=== PATIENT | male | born 1960 | race Caucasian/White ===

== ENCOUNTER 2025-09-19 15:18 | Outpatient (REF) | payer MEDICARE, SELFPAY ==
[2025-09-19 18:27] LABS: MANUAL DIFF FLAG NO
[2025-09-19 19:00] LABS: Hematocrit 49.9 % (42.0-52.0); Hemoglobin 16.8 g/dl (14.0-18.0); Imm Gran Abs Auto 0.06 X10*3/uL (0.00-0.03); Imm Gran Pct Auto 0.7 % (0.0-0.4); Lymphocytes Absolute Auto 2.1 X10*3/uL (1.2-4.9); Mean Corpuscular HGB Conc 33.7 g/dl (31.0-36.0); Mean Corpuscular Hemoglobin 30.5 pg (27.0-33.0); Mean Corpuscular Volume 90.6 fL (80.0-98.0); NRBC Abs Auto 0.000 X10*3/uL (0.0-0.012); NRBC Pct Auto 0.0 /100WBC (0.0-0.2); Platelet Count 192 X10*3/uL (160-400); Red Blood Count 5.51 X10*6/uL (4.60-5.80); White Blood Count 8.6 X10*3/uL (4.8-10.8)
[2025-09-19 19:36] LABS: Appearance Urine Clear; Glucose Urine UA Negative (Negative); PH 5.0 (5.0-9.0); Specific Gravity - Urine 1.020 (1.005-1.025)
[2025-09-19 19:55] LABS: Alanine Aminotransferase 73 U/L (0-40); Albumin Level 4.8 g/dL (3.5-5.0); Alkaline Phosphatase 55 U/L (39-117); Anion Gap 15 (12-20); Aspartate Amino Transferase 80 U/L (5-37); Blood Urea Nitrogen 13 mg/dL (9-16); Calcium 10.0 mg/dL (8.4-10.2); Carbon Dioxide 20 mmol/L (22-29); Chloride 106 mmol/L (96-108); Cholesterol 181 mg/dL (<200); Estimated Glomerular Filt Rate > 60; HDL Cholesterol 38 mg/dL (>40); Magnesium 1.8 mg/dL (1.6-2.6); Potassium 4.1 mmol/L (3.3-5.1); Sodium 137 mmol/L (135-145); Total Protein 7.2 g/dL (6.5-8.0); Triglycerides 424 mg/dL (<150)
[2025-09-19 20:22] LABS: Folate 6.0 ng/mL (> or = 4.0); Vitamin B12 799 pg/mL (200-900)
[2025-09-20 08:48] LABS: Syphilis Screen Nonreactive (Nonreactive)
[2025-09-20 09:11] LABS: HBS Num1 0.00 mIU/mL (0-7.99); HBsAGNum1 0.40 S/CO (0.00-0.99); HIV Num 1 0.06 S/CO (0.00-0.99); Hepatitis B Surface Antigen Negative (Negative); ~HepC Num1 0.12 S/CO (0.00-0.79); ~Hepatitis B Surface Antibody NONREACTIVE (Nonreactive); ~Hepatitis C Antibody Nonreactive (Nonreactive)
[2025-09-23 17:18] LABS: VITAMIN D (1,25 OH) D3 13 pg/mL; Vit D (1,25-Dihydroxy) Total 13 pg/mL (18-72); Vitamin D (1,25 OH) D2 <8 pg/mL
== END 2025-09-19 15:19 | disposition home or self-care (01) ==
LOC: HO.HKASLDS 15:18
PROVIDERS: PCP Student in an Organized Health Care Education/Training Program; Visit Provider Student in an Organized Health Care Education/Training Program
DX: I11.0 Hypertensive heart disease with heart failure (principal); L50.9 Urticaria, unspecified; J45.909 Unspecified asthma, uncomplicated; I42.9 Cardiomyopathy, unspecified; I50.9 Heart failure, unspecified; M54.50 Low back pain, unspecified; E11.9 Type 2 diabetes mellitus without complications; E66.9 Obesity, unspecified; E29.1 Testicular hypofunction; E78.5 Hyperlipidemia, unspecified; F32.A Depression, unspecified; N40.0 Benign prostatic hyperplasia without lower urinary tract symptoms; G89.29 Other chronic pain; R79.89 Other specified abnormal findings of blood chemistry; J45.20 Mild intermittent asthma, uncomplicated; F41.9 Anxiety disorder, unspecified; E55.9 Vitamin D deficiency, unspecified; Z86.0100 Personal history of colon polyps, unspecified; Z91.09 Other allergy status, other than to drugs and biological substances; Z87.891 Personal history of nicotine dependence; Z28.89 Immunization not carried out for other reason; Z98.890 Other specified postprocedural states
CPT/HCPCS: 36415; 80053; 80061; 81003; 82607; 82652; 82746; 83036; 83735; 84443; 85025; 86706; 86780; 86803; 87340; 87389; 90471; 96127

== ENCOUNTER 2025-09-19 15:18 | Outpatient (AMB) | payer MEDICARE, SELFPAY ==
--- NOTE | 2025-09-19 15:20 | A.OFFPC_ITS ---
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; Diabetes Accompanied by: Self / Same As Patient Allergies No Known Allergies Allergy (Verified 09/19/25 15:26) Tobacco use date assessed: 09/19/25 Fall risk assessment: 1 Fall in past year Last assessed Fall Risk: 09/19/25 Dental Screening Dental Screen Date: 09/19/25 Did you have a dental visit in the last 12 months?: Yes Was dental information given to patient?: Patient has dentist HPI HPI Comments History of Present Illness Details History of Present Illness The patient is a 65-year-old male presenting to establish care and for management of multiple chronic conditions, with chief complaints of new-onset urticaria and asthma exacerbations. Urticaria and Asthma: The patient has a history of asthma and allergic physiology and reports developing urticaria and asthma symptoms around the beginning of August, after moving to the [facility] in May. He notes some hives on his back currently, which can escalate within 10 minutes to full-blown hives and asthma, requiring visits to urgent care, which has happened twice. He has previously used Benadryl and hydroxyzine for these symptoms and has triamcinolone 0.1% cream, which has been helpful. He suspects environmental triggers such as mold from a wet basement in his older home and mold spores from leaves. While living in [place], he received allergy shots which were helpful. Cardiomyopathy and Congestive Heart Failure: The patient has a history of idiopathic cardiomyopathy, which led to congestive heart failure and qualified him for Social Security disability. His ejection fraction was measured as low as 30%, though a subsequent nuclear study showed a higher value. He has undergone cardiac catheterization twice to search for an electrical focus for ablation, which was not found. A defibrillator was considered but ultimately not implanted. His last echocardiogram was about a year ago, which showed his ejection fraction was in the normal range. He reports some recent swelling. Chronic Low Back Pain: The patient experiences chronic low back pain from a pinched disc, confirmed by an MRI several years ago. He receives cortisone injections every six months to a year, which helps him avoid using a wheelchair. The condition causes a lack of feeling in a part of his leg. Type 2 Diabetes Mellitus and Obesity: The patient was diagnosed with type 2 diabetes after two hemoglobin A1c measurements were over 6.0. He has been taking semaglutide (Ozempic) 2 mg weekly for over a year and has lost 30 pounds, going from 290 to 260 pounds. Hypogonadism: The patient has low testosterone and would like to have it titrated to the high end of the normal range, stating it makes a significant difference in his quality of life. He currently uses a testosterone gel/cream. Hypertension: The patient takes losartan 50 mg and bisoprolol for blood pressure control. Hyperlipidemia: The patient takes simvastatin for cholesterol management and requires prescription refills. Depression: The patient takes fluoxetine for depression but is not currently seeing a ther apist. History of Colon Polyps: The patient has a history of colon polyps found during past colonoscopies and is unsure if he is due for another screening. Benign Prostatic Hyperplasia: The patient has benign prostatic hyperplasia and takes finasteride. Surgical History: - Laparoscopic appendectomy - Cardiac catheterizations (x2) Medications: - Aspirin for heart condition - Bisoprolol for heart condition - Budesonide/formoterol (Symbicort) for asthma - Albuterol inhaler as needed for asthma - Vitamin D - Finasteride for benign prostatic hyper plasia - Fluoxetine for depression - Losartan 50 mg for hypertension - Vitamin B12, due to a past deficiency - Melatonin as needed for sleep - Semaglutide (Ozempic) 2 mg weekly for type 2 diabetes - Simvastatin for hyperlipidemia - Testosterone cream for hypogonadism - Ketoconazole for ear fungus - Montelukast 10 mg for allergies/asthma - Triamcinolone 0.1% cream, which he use s for hives Social History: - Substance Use: Patient has a 30-year h istory of smoking, having quit in 1988. 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 - Living Situation: Resides in an apartm ent within a house built in the 1800s and reports the basement is wet and moldy, which he suspects contributes to his allergies. - Exercise: Walks daily in the [facility] his daughter for about an hour and plans to start playing ice hockey. Diagnostic Results: - Vitals: Blood pressure 130/80 mmHg. - Prior Labs: History of two hemoglobin A1c measurements over 6.0, leading to a diagnosis of diabetes. - Prior Imaging: An echocardiogram about a year ago showed a normal ejection fraction. - Prior Imaging: An MRI several years ag o showed a pinched disc in his lower back. Past Medical History - Idiopathic cardiomyopathy with a histo ry of ejection fraction as low as 30%, which has since normalized - Congestive heart failure - Asthma - Type 2 diabetes mellitus - Hypertension - Hyperlipidemia - Depression - Benign prostatic hyperplasia - Chronic low back pain with pinched dis c - History of colon polyps - Metabolic syndrome with fatty liver - Obesity, with a 30-pound weight loss o n semaglutide - Hypogonadism - History of smoking for 30 years, quit in 1988 - History of laparoscopic appendectomy Health Maintenance - Colonoscopy: Patient has a history of polyps and is due for a follow-up screening. - Lung Cancer Screening: A low-dose CT s can was discussed due to a 30-year smoking history, but has not been performed. - Weight Management: Patient has lost 30 pounds with semaglutide. - Future options for weight management i ncluding a medical weight management clinic, bariatric surgery, and a collateral clerk referral were discussed, pending lab results. [facility] Medical History (Updated 09/21/25 @ 09:20 by Tal Dsouza MD) Depression Hyperlipidemia Hypogonadism male Diabetes type 2 Cardiomyopathy Mild intermittent asthma Hives Allergic reaction Chronic lower back pain Low testosterone Anxiety and depression History of colon polyps Congestive heart failure Idiopathic cardiomyopathy Surgical History (Updated 09/19/25 @ 16:12 by Tal Dsouza MD) History of cardiac catheterization Family History (Updated 09/19/25 @ 15:22 by Franca Flowers CMA) Mother No problems noted. Father No problems noted. Social History Housing: Apartment Patient Tobacco Use Status: Former Tobacco user service: No Current occupational status: employed Cognitive needs: No Hearing needs: Yes (occasional wheelchair use) Vision needs: Yes (glasses) Questionnaire PHQ-9 Over the last 2 weeks, how often have you been bothered by any of the following problems? 1. Little interest or pleasure in doing things: not at all 2. Feeling down, depressed, or hopeless: not at all 3. Trouble falling or staying asleep, or sleeping too much: not at all 4. Feeling tired or having little energy: not at all 5. Poor appetite or overeating: not at all 6. Feeling bad about yourself - or that you are a failure or have let yourself or your family down: not at all 7. Trouble concentrating on things, such as reading the newspaper or watching television: not at all 8. Moving or speaking so slowly that other people could have noticed. Or the opposite - being so fidgety or restless that you have been moving around a lot more than usual: not at all 9. Thoughts that you would be better off or of hurting yourself in some way: not at all Total score: 0 Depression Screening Interpretation: Negative Depression Screening Done: Yes Source: Developed by Drs. Jgiar Sanford, Kylee Christiansen, Clint Abdullahi and colleagues, with an educational celestina from [email or web address]. Thrive Questionnaire Date Thrive assessed: 09/19/25 I am a: Patient What is your living situation today?: I have a steady place to live Within the past 12 months, did the food you bought not last and you didn't have the money to get more?: Never true Within the past 12 months, did you worry whether your food would run out before you got money to buy more?: Never true Do you have trouble paying for medicines?: No Do you have trouble getting transportation to medical appointments?: No Do you have trouble paying your heating and electricity bill?: No Do you have trouble taking care of your child, family member or friend?: No Do you have trouble with day-to-day activities such as bathing, preparing meals, shopping, managing finances, etc.?: No Are you currently unemployed and looking for a job?: No Are you interested in more education?: No Please select the resources that you would like help with: None Currently or been in a relationship where the following occur: No concerns reported THRIVE Score: 0 AUDIT C Alcohol Use Questionnaire (AUDIT-C) 3. How often do you have six or more drinks on one occasion?: Never Total Score: 0 BRITNEY-7 AMB Questionnaire BRITNEY-7 Date BRITNEY - 7 assessed: 09/19/25 Source: Developed by Drs. Jigar Sanford, Clint Stone and colleagues, with an educational celestina from [email or web address]. Review of Systems Narrative Review of Systems - Constitutional: Reports obesity and tremors that are getting worse. - Allergic/Immunologic: Reports new onset of hives since August. - Cardiovascular: Reports recent, slight swelling and frequent PVCs. - Respiratory: Reports asthma exacerbations. - HEENT: Reports fungus in the ear. - Musculoskeletal: Reports chronic low back pain. - Neurological: Reports lack of feeling in a part of his leg. - Psychiatric: Endorses depression. - Endocrine: Reports low testosterone. - Skin: Reports dry skin and corn on his foot. 10-point ROS reviewed and negative except as noted in HPI Physical exam (Primary Care) Vital Signs: Last Vital Signs Temp 97.5 F 09/19/25 15:35 Pulse 94 09/19/25 15:35 BP 130/80 09/19/25 15:35 Pulse Ox 95 09/19/25 15:35 Oxygen Delivery Method Room Air 09/19/25 15:35 Tobacco/Smoking Status: Tobacco use Status Tobacco use date assessed 09/19/25 09/19/25 15:23 Patient Tobacco Use Status Former Tobacco user 09/19/25 15:33 PHQ-9: PHQ-9 Score PHQ-9: Total score 0 09/19/25 15:39 Depression Screening Interpretation: Negative Thrive Assessment: Date of Thrive Assessment Date Thrive assessed 09/19/25 09/19/25 15:23 Currently or been in a relationship where the following occur: No concerns reported Narrative Physical Exam General: Well-appearing, in no acute distress. Vital signs: Blood pressure 130/80. HEENT: Normocephalic, atraumatic. PERRLA, EOMI. Conjunctiva clear, sclera anicteric. Oropharynx clear, mucous membranes moist. TMs intact bilaterally. Neck: Supple, no lymphadenopathy, no thyromegaly, no JVD or carotid bruits. Cardiovascular: RRR, normal S1/S2, no murmurs, rubs, or gallops. Peripheral pulses 2+ and symmetric. No edema. Respiratory: Lungs clear to auscultation bilaterally, no wheezes, rales, or rhonchi. Normal effort. Abdomen: Soft, non-tender, non-distended. Normoactive bowel sounds. No hepatosplenomegaly, no masses. MSK: Full range of motion, no joint swelling or deformity. Normal gait. Chronic low back pain due to a bulging disc, with lack of feeling in part of the leg. Skin: Warm, dry, intact. Hives present on the back, mild redness noted. Neuro: Alert and oriented x3. Cranial nerves II-XII intact. Strength 5/5 throughout. Sensation intact except for noted area on the leg. Reflexes 2+ symmetric. Normal coordination and gait. Tremors noted. Psych: Appropriate mood and affect. Normal judgment and insight. History of depression. Office Procedures Flu Questionnaire Does the patient have a severe egg allergy?: No Does the patient have severe life threatening allergies?: No Does the patient have a fever or illness today?: No Has the patient ever had Guillain-[place] Syndrome?: No Has the patient ever had any past reaction to a flu shot?: No Immunizations Fluarix [id number] (PF) 45 mcg (15 mcg x 3)/0.5 mL IM syringe Performing Provider: Tal Dsouza MD Performing Location: [facility] Documented (not given) by: Franca Flowers CMA on 09/19/25 15:39 Reason Not Given: Received Previously Coding Level of Care Code New Pt Level 4 (02080) Diagnoses Hives L50.9 Chronic lower back pain M54.50; G89.29 History of colon polyps Z86.0100 Low testosterone R79.89 Mild intermittent asthma J45.20 Cardiomyopathy I42.9 Diabetes type 2 E11.9 Hypogonadism male E29.1 Idiopathic cardiomyopathy I42.9 Congestive heart failure I50.9 Hyperlipidemia E78.5 Depression F32.A History of cardiac catheterization Z98.890 Anxiety and depression F41.9; F32.A Allergic reaction T78.40XA Assessment & Plan Assessment & Plan (1) Hives: Code(s): L50.9 - Urticaria, unspecified Category: Medical (2) Chronic lower back pain: Code(s): M54.50 - Low back pain, unspecified; G89.29 - Other chronic pain Category: Medical (3) History of colon polyps: Code(s): Z86.0100 - Personal history of colon polyps, unspecified Category: Medical (4) Low testosterone: Code(s): R79.89 - Other specified abnormal findings of blood chemistry Category: Medical (5) Mild intermittent asthma: Code(s): J45.20 - Mild intermittent asthma, uncomplicated Category: Medical (6) Cardiomyopathy: Code(s): I42.9 - Cardiomyopathy, unspecified Category: Medical (7) Diabetes type 2: Code(s): E11.9 - Type 2 diabetes mellitus without complications Category: Medical (8) Hypogonadism male: Code(s): E29.1 - Testicular hypofunction Category: Medical (9) Idiopathic cardiomyopathy: Code(s): I42.9 - Cardiomyopathy, unspecified Category: Medical (10) Congestive heart failure: Code(s): I50.9 - Heart failure, unspecified Category: Medical (11) Hyperlipidemia: Code(s): E78.5 - Hyperlipidemia, unspecified Category: Medical (12) Depression: Code(s): F32.A - Depression, unspecified Category: Medical (13) History of cardiac catheterization: Code(s): Z98.890 - Other specified postprocedural states Category: Surgical (14) Anxiety and depression: Code(s): F41.9 - Anxiety disorder, unspecified; F32.A - Depression, unspecified Category: Medical (15) Allergic reaction: Code(s): T78.40XA - Allergy, unspecified, initial encounter Category: Medical Plan Consent Patient was informed and verbally consented to the use of an ambient scribe for clinic note documentation during this visit. Plan 1. Urticaria And Asthma - Advised to start a daily allergy medication such as cetirizine. - Prescribed hydroxyzine to be taken once in the morning and once at night. - Refilled triamcinolone 0.1% cream for topical use on affected areas. - Placing referral to exchange specialist for further evaluation. - Continue montelukast, Symbicort, and albuterol as needed. 2. Idiopathic Cardiomyopathy And Congestive Heart Failure - Placing referral to Cardiology for follow-up care. - Ordered a transthoracic echocardiogram as the last one was a year ago. - Continue aspirin and bisoprolol. 3. Chronic Low Back Pain - Placing referral to Pain Management for evaluation and consideration of further injections. 4. History Of Colon Polyps - Placing referral to Gastroenterology for follow-up and to determine need for repeat colonoscopy. 5. Hypogonadism - Placing referral to Urology for management of low testosterone. - Continue testosterone cream. 6. Depression - Placing referral to Behavioral Health for therapy. - Continue fluoxetine. 7. General Health And Chronic Disease Management - Ordered a comprehensive blood panel including CBC, CMP, HbA1c, hepatitis panel, lipid panel, magnesium, TSH, urinalysis, vitamin B12, folate, and vitamin D. - The patient will continue his current medications for hypertension, hyperlipidemia, and diabetes (losartan, simvastatin, semaglutide) pending lab results. - For obesity and diabetes, options including a medical weight management clinic, bariatric surgery, and a collateral clerk referral will be explored after lab review. - Follow-up appointment scheduled in two weeks to review lab results. Discussion Notes I met with the patient, a 65-year-old male, who is establishing care with me for his multiple chronic health issues. His most acute issue is the recent onset of hives and asthma, for which I recommended restarting hydroxyzine, starting daily cetirizine, and using his triamcinolone cream, and placed a referral to an bean picker machine operator. We discussed his extensive medical history, and I am placing multiple referrals to re-establish care with specialists. This includes referrals to Cardiology for his idiopathic cardiomyopathy and CHF, for which I also ordered a new echocardiogram; Gastroenterology for his history of colon polyps; Urology for management of low testosterone; Pain Management for his chronic back pain; and Behavioral Health for his depression. I have ordered a comprehensive panel of bloodwork to establish a new baseline for his various conditions, including T2DM, hyperlipidemia, and vitamin deficiencies. The patient agreed to continue his current medications for now. We will review these results at a follow-up visit in two weeks and will then explore further options for weight management, such as a medical weight clinic, bariatric surgery, and a collateral clerk referral. Patient Instructions - For your recent hives and allergies, please start taking an [id number] daily allergy pill like Zyrtec (cetirizine). - I have sent a prescription for hydroxyzine; take it as directed to help with the hives. - Continue to use your triamcinolone cream on any itchy spots as needed. - Please continue taking all your current medications as prescribed until we review your lab work. - I have placed referrals for you to see specialists for your heart (Cardiology), stomach/colon (Gastroenterology), low testosterone (Urology), back pain (Pain Management), depression (Behavioral Health), and allergies (Allergy). - An order for an echocardiogram (ultrasound of your heart) has been placed. - Please go to the lab to have your blood drawn for the tests we ordered. - Please schedule a follow-up appointment in two weeks to go over your lab re sults and discuss the next steps in your care. Medical Decision Making The patient is a 65-year-old male with a complex medical history presenting to establish care. His acute complaint of urticaria and asthma exacerbation, which started after his recent move, suggests a new environmental allergen, possibly mold from his home. My immediate plan is to control these symptoms with daily cetirizine, as-needed hydroxyzine, and topical triamcinolone, while a referral is made to an bean picker machine operator for definitive trigger identification. Given his significant history of idiopathic cardiomyopathy and CHF, it is prudent to re-establish care with cardiology and obtain a new baseline TTE, as his last evaluation was a year ago. Continuity of care for his multiple chronic conditions requires specialist co-management, hence the referrals to GI, Urology, Pain Management, and Behavioral Health for his history of colon polyps, hypogonadism, chronic radicular back pain, and depression, respectively. A comprehensive lab panel was ordered to assess the current status of his T2DM, hyperlipidemia, and nutritional status. He is currently on the maximum dose of semaglutide with a 10% total body weight loss. After reviewing labs in two weeks, we will discuss a multimodal approach to his obesity and diabetes, including a medical weight management clinic, nutritional counseling, and potential for bariatric surgery. This comprehensive approach is designed to establish care, address acute issues, and create a coordinated, long-term plan for his complex health needs. Total Time Statement 30 min Total time spent caring for the patient today includes pre-visit chart review, documentation, review of laboratory and diagnostic imaging results, medication reconciliation, medically necessary evaluation, counseling on diagnoses, care coordination, ordering appropriate tests and medications, review of tests performed by other providers, reporting test results to the patient, and communication with other healthcare providers. Orders: Orders Influenza [id number] Immunization 09/19/25 Z23 - Encounter for immunization Complete Blood Count Auto Diff 09/19/25 Z13.9 - Encounter for screening, unspecified Hepatitis C Antibody 09/19/25 Z13.9 - Encounter for screening, unspecified TSH reflex Free T4 09/19/25 Z13.9 - Encounter for screening, unspecified HIV Ab/Ag 09/19/25 Z13.9 - Encounter for screening, unspecified Lipid Panel 09/19/25 Z13.9 - Encounter for screening, unspecified Hemoglobin A1c 09/19/25 Z13.9 - Encounter for screening, unspecified Hepatitis B Surface Antigen 09/19/25 Z13.9 - Encounter for screening, unspecified Syphilis Screen 09/19/25 Z13.9 - Encounter for screening, unspecified Comprehensive Met. Panel 09/19/25 Z13.9 - Encounter for screening, unspecified UA CC w/rflx Micro + Cult 09/19/25 Z13.9 - Encounter for screening, unspecified Vitamin B12 and Folate 09/19/25 Z13.9 - Encounter for screening, unspecified Magnesium 09/19/25 Z13.9 - Encounter for screening, unspecified Vitamin D 1,25 dihydroxy 09/19/25 Z13.9 - Encounter for screening, unspecified Hepatitis B Surface Antibody 09/19/25 Z13.9 - Encounter for screening, unspecified CA echo transthoracic complete 09/19/25 I42.9 - Cardiomyopathy, unspecified, I50.9 - Heart failure, unspecified, Z98.890 - Other specified postprocedural states Referrals Urology Referral R79.89 - Other specified abnormal findings of blood chemistry Pain Management Referral G89.29 - Other chronic pain, M54.50 - Low back pain, unspecified Allergy & Immunology Referral L50.9 - Urticaria, unspecified, T78.40XA - Al lergy, unspecified, initial encounter Cardiology Referral I42.9 - Cardiomyopathy, unspecified, I50.9 - Heart failure, unspecified Gastroenterology Referral Z86.0100 - Personal history of colon polyps, unspecified Behavioral Health Referral F32.A - Depression, unspecified, F41.9 - Anxiety disorder, unspecified Medications: New triamcinolone acetonide 0.1% 1 appl topical DAILY 80 grams 0RF hydroxyzine HCl 25 mg PO BID PRN 30 tabs 0RF itching cetirizine (Allergy Relief (cetirizine)) 10 mg PO DAILY 90 caps 0RF
[2025-09-19 15:35] VITALS: BP 130/80; PULSE 94; TEMP 36.4; O2SAT 95
== END 2025-09-19 16:03 | disposition home or self-care (01) ==
LOC: HO.HMCFMS 15:19
PROVIDERS: PCP Student in an Organized Health Care Education/Training Program; Visit Provider Student in an Organized Health Care Education/Training Program
DX: Z23 Encounter for immunization (principal)

== ENCOUNTER 2025-10-05 11:39 | Outpatient (AMB) | payer OTHER, SELFPAY ==
--- NOTE | 2025-10-05 11:43 | A.OFFPC_ITS ---
Vital Signs 10/05/25 11:51 Height 6 ft 4 in Weight 288 lb BMI 35.1 BP 137/78 Blood Pressure Location Rt brachial Position Sitting Respiration 18 Pulse 67 Pulse Source Pulse Oximeter Temp 97.8 F Temp Source Oral Pulse Oximetry (%) 95 Oxygen Delivery Method Room Air Intake Visit Reasons: 2 week follow up Intake Note: Patient present for folow up appointment. Nursing Resident Required: No Accompanied by: Self / Same As Patient Allergies No Known Allergies Allergy (Verified 10/05/25 11:48) Medication List - Last Reconciled 10/05/25 by Tal Dsouza MD aspirin 81 mg PO DAILY bisoprolol fumarate 10 mg PO BID budesonide-formoterol 80-4.5 mcg/actuation (Symbicort) 2 puffs inhalation ONCE cetirizine (Allergy Relief (cetirizine)) 10 mg PO DAILY epinephrine (EpiPen) 0.3 mg (0.3 mL) IM Q10M PRN ergocalciferol (vitamin D2) 1,250 mcg PO QWEEK finasteride 5 mg PO DAILY fluoxetine 10 mg PO BID hydroxyzine HCl 25 mg PO BID PRN ketoconazole 2% appl topical BID losartan 50 mg PO DAILY mecobalamin (vitamin B12) 1,000 mcg PO DAILY melatonin mg PO mometasone 0.1% appl topical DAILY montelukast 10 mg PO DAILY omega-3 acid ethyl esters 2 caps PO BID semaglutide (Ozempic) 2 mg subcut QWEEK simvastatin 20 mg PO DAILY testosterone topical tirzepatide (Mounjaro) 10 mg (0.5 mL) subcut QWEEK triamcinolone acetonide 0.1% 1 appl topical DAILY Tobacco use date assessed: 09/19/25 Fall risk assessment: 1 Fall in past year Last assessed Fall Risk: 10/05/25 Dental Screening Dental Screen Date: 09/19/25 HPI HPI Comments History of Present Illness Details History of Present Illness The patient is a 65 year old male presenting for review of lab results. Prediabetes/Diabetes: The patient has a history of type 2 diabetes and is currently being treated with Ozempic. His current hemoglobin A1c is 6.3%, which is in the prediabetes range. He reports that a recent A1c measurement about a week prior was 5.9%, and he attributes the recent increase to an increase in carbohydrate and sweet intake after discontinuing a diet. Nonalcoholic fatty liver disease and Hypertriglyceridemia: The patient has elevated liver function tests, with an AST of 80 and an ALT of 73. He denies alcohol consumption and has been previously told he has a fatty liver, confirmed by imaging (ultrasound or MRI) at least three years ago. His triglycerides are elevated at 424, and his HDL is low at 38. He is currently taking simvastatin 20 mg. Obesity: The patient identifies obesity as his main complaint and believes weight loss would improve other health issues, such as back pain. He has been on Ozempic for approximately 18 months to 2 years and has lost 30 pounds, which is 10% of his body weight. He has previously tried a low-carb diet and intermittent fasting but found them difficult to maintain and stopped due to a perceived lack of progress. He inquired about bariatric surgery 3 to 5 years ago but was told he did not qualify at that time. Vitamin D Deficiency: The patient's vitamin D level was found to be low at 13. He reports taking a daily vitamin D supplement. Suspected Peanut Allergy: The patient suspects an adult-onset peanut allergy after experiencing an episode of hives and swollen lips 10-15 minutes after eating nuts. He also reported some minor respiratory symptoms with the reaction. He has an upcoming appointment with an assistant fitness manager to undergo skin testing. Tremor: The patient reports having a tremor that is bothering him and has affected his ability to write. He is concerned about the possibility of Parkinson's disease and has never seen a neurologist for this issue. Medications: - Ozempic for type 2 diabetes - Simvastatin 20 mg daily for hyperlipid emia - Daily vitamin D supplement Social History: - The patient denies drinking alcohol. - He also denies drinking soda or sweete dajuan beverages. - Regarding his diet, he reports having recently increased his intake of carbohydrates and sweets after abandoning a low-carb diet he was on for weight reasons. - He has also tried intermittent fasting in the past. Diagnostic Results: - Labs: - Hemoglobin A1c: 6.3% - AST: 80 U/L - ALT: 73 U/L - Triglycerides: 424 mg/dL - HDL cholesterol: 38 mg/dL - LDL cholesterol: Not calculated due to high triglycerides - Vitamin D: 13 ng/mL - Complete blood count: Normal - Sodium, potassium: Good - Kidney function: Great - Calcium, magnesium, folate, thyroid fu nction: Good/Normal - Urinalysis: Normal - Syphilis, Hepatitis B, Hepatitis C, HI V: Negative Past Medical History - Type 2 Diabetes, currently in the pred iabetes range - Nonalcoholic fatty liver disease, diag nosed at least 3 years ago per patient report of imaging - Hyperlipidemia - Obesity Health Maintenance - The patient has been counseled on diet naomi modifications, including reducing carbohydrates and sweets, to manage his prediabetes and hypertriglyceridemia. - He has an upcoming appointment with an assistant fitness manager for further evaluation of a suspected food allergy. - He discussed and has been referred for multiple weight management strategies, including consultations with a bariatric surgeon and a medical weight management clinic. - He inquired about testosterone replace ment therapy and was referred to a urologist. [facility] Medical History (Updated 10/05/25 @ 13:49 by Tal Dsouza MD) Class 2 obesity Tremor Low vitamin D level Peanut allergy Elevated liver enzymes Hypertriglyceridemia Depression Hyperlipidemia Hypogonadism male Diabetes type 2 Cardiomyopathy Mild intermittent asthma Hives Allergic reaction Chronic lower back pain Low testosterone Anxiety and depression History of colon polyps Congestive heart failure Idiopathic cardiomyopathy Surgical History History of cardiac catheterization Family History Mother No problems noted. Father No problems noted. Social History (Updated 10/05/25 @ 11:50 by Myron Breaux CMA) Housing: Apartment Alcohol intake: never Patient Tobacco Use Status: Former Tobacco user e-Cigarette/Vaping Use: Never Used service: No Current occupational status: employed Cognitive needs: No Hearing needs: Yes (occasional wheelchair use) Vision needs: Yes (glasses) Questionnaire Thrive Questionnaire Date Thrive assessed: 09/05/25 I am a: Patient What is your living situation today?: I have a steady place to live Within the past 12 months, did the food you bought not last and you didn't have the money to get more?: Never true Within the past 12 months, did you worry whether your food would run out before you got money to buy more?: Never true Do you have trouble paying for medicines?: No Do you have trouble getting transportation to medical appointments?: No Do you have trouble paying your heating and electricity bill?: No Do you have trouble taking care of your child, family member or friend?: No Do you have trouble with day-to-day activities such as bathing, preparing meals, shopping, managing finances, etc.?: No Are you currently unemployed and looking for a job?: No Are you interested in more education?: No Please select the resources that you would like help with: None Currently or been in a relationship where the following occur: No concerns reported THRIVE Score: 0 BRITNEY-7 AMB Questionnaire BRITNEY-7 Date BRITNEY - 7 assessed: 09/19/25 Source: Developed by Drs. Jigar Sanford, Kylee Christiansen, Clint Abdullahi and colleagues, with an educational celestina from [employer]. Review of Systems Narrative Review of Systems - Allergic/Immunologic: Reports developing hives and swollen lips after eating nuts. - Neurological: Reports a tremor that affects his writing and causes concern for Parkinson's disease. - Respiratory: Reports some minor respiratory symptoms associated with his allergic reaction. - Constitutional: Reports obesity is his main complaint and believes weight loss would help other issues. - Musculoskeletal: Mentions back pain. 10-point ROS reviewed and negative except as noted in HPI Physical exam (Primary Care) Vital Signs: Last Vital Signs Temp 97.8 F 10/05/25 11:51 Pulse 67 10/05/25 11:51 Resp 18 10/05/25 11:51 BP 137/78 10/05/25 11:51 Pulse Ox 95 10/05/25 11:51 Oxygen Delivery Method Room Air 10/05/25 11:51 BMI result Body Mass Index 35.1 Tobacco/Smoking Status: Tobacco use Status Tobacco use date assessed 09/19/25 10/05/25 11:44 Patient Tobacco Use Status Former Tobacco user 10/05/25 11:50 e-Cigarette/Vaping Use Never Used 10/05/25 11:54 Thrive Assessment: Date of Thrive Assessment Date Thrive assessed 09/05/25 10/05/25 11:44 Currently or been in a relationship where the following occur: No concerns reported Narrative Physical Exam General: Well-appearing, in no acute distress. Vital signs: Within normal limits. HEENT: Normocephalic, atraumatic. PERRLA, EOMI. Conjunctiva clear, sclera anicteric. Oropharynx clear, mucous membranes moist. TMs intact bilaterally. Neck: Supple, no lymphadenopathy, no thyromegaly, no JVD or carotid bruits. Cardiovascular: RRR, normal S1/S2, no murmurs, rubs, or gallops. Peripheral pulses 2+ and symmetric. No edema. Respiratory: Lungs clear to auscultation bilaterally, no wheezes, rales, or rhonchi. Normal effort. Abdomen: Soft, non-tender, non-distended. Normoactive bowel sounds. No hepatosplenomegaly, no masses. MSK: Full range of motion, no joint swelling or deformity. Normal gait. Skin: Warm, dry, intact. No rashes, lesions, or pallor. Neuro: Alert and oriented x3. Cranial nerves II-XII intact. Strength 5/5 throughout. Sensation intact. Reflexes 2+ symmetric. Normal coordination and gait. Psych: Appropriate mood and affect. Normal judgment and insight. Coding Level of Care Code Est Pt Level 3 (61897) Diagnoses Peanut allergy Z91.010 Allergic reaction T78.40XA Hypertriglyceridemia E78.1 Diabetes type 2 E11.9 Low testosterone R79.89 Hypogonadism male E29.1 Elevated liver enzymes R74.8 Low vitamin D level R79.89 Tremor R25.1 Assessment & Plan Assessment & Plan (1) Peanut allergy: Code(s): Z91.010 - Allergy to peanuts Category: Medical (2) Allergic reaction: Code(s): T78.40XA - Allergy, unspecified, initial encounter Category: Medical (3) Hypertriglyceridemia: Code(s): E78.1 - Pure hyperglyceridemia Category: Medical (4) Diabetes type 2: Code(s): E11.9 - Type 2 diabetes mellitus without complications Category: Medical (5) Low testosterone: Code(s): R79.89 - Other specified abnormal findings of blood chemistry Category: Medical (6) Hypogonadism male: Code(s): E29.1 - Testicular hypofunction Category: Medical (7) Elevated liver enzymes: Code(s): R74.8 - Abnormal levels of other serum enzymes Category: Medical (8) Low vitamin D level: Code(s): R79.89 - Other specified abnormal findings of blood chemistry Category: Medical (9) Tremor: Code(s): R25.1 - Tremor, unspecified Category: Medical Plan Consent The patient verbally agreed to referrals to nutrition, neurology, urology, bariatric surgery, and a medical weight loss clinic. Patient was informed and verbally consented to the use of an ambient scribe for clinic note documentation during this visit. Plan 1. Prediabetes - Explained that his hemoglobin A1c of 6.3% falls within the prediabetes range. - Placed a referral for a registered dietitian to provide education on diet to help lower his blood sugar. 2. Hypertriglyceridemia And Nonalcoholic Fatty Liver Disease - Add omega-3 sterile esters, two capsules in the morning and two at night, to help lower triglycerides. - Continue simvastatin 20 mg daily. - Order an ultrasound of the abdomen to re-evaluate the liver. - Counseled on the risk of acute pancreatitis due to elevated triglycerides. 3. Vitamin D Deficiency - Discontinue the patient's daily vitamin D supplement. - Prescribed a high-dose vitamin D 50,000 units to be taken once a week for repletion. 4. Suspected Peanut Allergy - Prescribed an epinephrine auto-injector (EpiPen) for emergency use. - Patient will follow up with an assistant fitness manager for skin testing. - Denied a patient request for a course of prednisone, citing the risk of hyperglycemia. 5. Tremor - Placed a referral to a neurologist specializing in movement disorders for evaluation of his tremor and concern for Parkinson's disease. 6. Obesity And Weight Management - Placed referrals to a commercial portfolio manager, a bariatric surgeon, and a medical weight loss clinic. - Placed a referral to urology to discuss testosterone replacement therapy. - Will attempt to obtain prior authorization to switch from Ozempic (semaglutide) to Mounjaro (tirzepatide) to potentially improve weight loss, cit ing suboptimal results with his current therapy. Discussion Notes I reviewed the patient's lab results with him in detail. I explained that his A1c of 6.3% places him in the prediabetes range and that this likely reflects his recent dietary changes. We discussed his elevated liver enzymes and critically high triglycerides of 424, which I connected to his known fatty liver and advised him of the associated risk for acute pancreatitis. Regarding his recent symptoms of a possible peanut allergy, I advised him to avoid peanuts and prescribed an EpiPen for emergency use while he awaits his scheduled assistant fitness manager appointment. I denied his request for prednisone due to the risk of exacerbating his hyperglycemia. For his new-onset tremor, I recommended he see a neurologist who specializes in movement disorders. He expressed significant concern about his obesity, and we discussed a multi- faceted approach. I have placed referrals to a dietitian, a bariatric surgeon, a medical weight loss clinic, and a urologist to discuss his interest in testosterone therapy. We also discussed potentially switching from Ozempic to Mounjaro for enhanced weight loss, and I will attempt to get this approved by his insurance. The patient was an active participant in the decision-making process and was agreeable to the comprehensive plan. Patient Instructions - Make an effort to cut down on carbohydrates and sweets in your diet to help lower your blood sugar. - Stop taking your daily [id number] vitamin D. - Take the newly prescribed high-dose vitamin D (50,000 units) just once a week. - Take the prescribed omega-3 (fish oil) medication as directed: two pills in the morning and two at night. - A prescription for an EpiPen will be sent to your pharmacy. - Please get the abdominal ultrasound done as ordered to check on your liver. - Our referral center will contact you to schedule several appointments. - You will be scheduled to see a commercial portfolio manager, a neurologist (for the tremor), a urologist (to discuss testosterone), a bariatric surgeon, and the medical weight loss clinic. Medical Decision Making The patient is a 65-year-old male presenting for a review of recent lab work, which revealed several interconnected metabolic issues. His A1c has risen to 6.3%, placing him back into a prediabetic state despite being on Ozempic, which is attributed to recent dietary shifts. His triglycerides are critically high at 424 mg/dL with associated LFT elevation and low HDL, consistent with his history of NAFLD and placing him at significant risk for acute pancreatitis. The plan is to address his dyslipidemia aggressively by adding high-dose omega-3 fatty acids and re-assessing his liver with an ultrasound. The patient's primary concern is his longstanding obesity, which he astutely no gustavo contributes to his other comorbidities. Given his reported 30-pound weight loss over 1.5-2 years on semaglutide is suboptimal, a more aggressive, multi- pronged approach is warranted. Therefore, I will attempt to switch him to tirzepatide for potentially superior weight loss and will also refer him to a bariatric surgeon and a medical weight loss clinic for comprehensive management options. Other issues addressed include his new-onset resting tremor, concerning for a movement disorder, for which a neurology referral is appropriate. His suspected adult-onset peanut allergy requires an EpiPen for safety pending definitive testing by his assistant fitness manager. His vitamin D deficiency will be treated with high- dose weekly supplementation. He also expressed interest in testosterone therapy, prompting a referral to urology for specialist consultation. Total Time Statement 20 min Total time spent caring for the patient today includes pre-visit chart review, documentation, review of laboratory and diagnostic imaging results, medication reconciliation, medically necessary evaluation, counseling on diagnoses, care coordination, ordering appropriate tests and medications, review of tests performed by other providers, reporting test results to the patient, and communication with other healthcare providers. Orders: Orders US abdomen limited Today R74.8 - Abnormal levels of other serum enzymes Referrals Bariatric Surgery Referral E66.812 - Obesity, class 2 Medical Weight Management Referral E66.812 - Obesity, class 2 Urology Referral R79.89 - Other specified abnormal findings of blood chemistry Neurology Referral R25.1 - Tremor, unspecified Nurse Navigator Referral E78.1 - Pure hyperglyceridemia Medications: New omega-3 acid ethyl esters 2 caps PO BID 360 caps 0RF E78.1 - Pure hyperglyceridemia epinephrine (EpiPen) for 2 doses 0.3 mg (0.3 mL) IM Q10M PRN 1 ea 0RF anaphylaxis Z91.010 - Allergy to peanuts ergocalciferol (vitamin D2) 1,250 mcg PO QWEEK 12 caps 0RF tirzepatide (Mounjaro) 10 mg (0.5 mL) subcut QWEEK 2 mL 0RF E11.9 - Type 2 diabetes mellitus without complications, E66.812 - Obesity, class 2
[2025-10-05 11:51] VITALS: BP 137/78; PULSE 67; RESP 18; TEMP 36.6; O2SAT 95; BMI 35.1
== END 2025-10-05 12:25 | disposition home or self-care (01) ==
LOC: HO.HMCFMS 11:41
PROVIDERS: Visit Provider Student in an Organized Health Care Education/Training Program
DX: Z91.010 Allergy to peanuts (principal); T78.40XA Allergy, unspecified, initial encounter; E78.1 Pure hyperglyceridemia; E11.9 Type 2 diabetes mellitus without complications; R79.89 Other specified abnormal findings of blood chemistry; E29.1 Testicular hypofunction; R74.8 Abnormal levels of other serum enzymes; R25.1 Tremor, unspecified

== ENCOUNTER 2025-10-12 14:57 | Outpatient (REF) | payer OTHER, SELFPAY ==
--- NOTE | ~2025-10-12 | XR_ITS ---
EXAMINATION: X-ray lumbar spine CLINICAL INFORMATION: Back pain COMPARISON: None TECHNIQUE: 5 views FINDINGS: Mild L2-3, L3-4, L4-5 retrolisthesis. Vertebral body alignment is otherwise maintained. Vertebral body heights are maintained. No evidence of acute fracture. No suspicious bony lesion. Mild disc degeneration in the visualized lower thoracic spine. Mild T12-L1 disc degeneration. Mild endplate spurring at a few levels in the lumbar spine. Facet degeneration in the lower lumbar spine. SI joints are symmetric. Small round calcification in the right upper quadrant, nonspecific. XR/XR lumbar spine 4V min IMPRESSION: No acute findings. Mild thoracolumbar spondylosis as above. Electronically signed by: Santhosh Theodore MD 10/12/2025 05:23 PM KRISTIN
--- NOTE | ~2025-10-12 | XR_ITS ---
EXAMINATION: XR HIP, LEFT CLINICAL INFORMATION: M25.552 - Pain in left hip COMPARISON: None available. TECHNIQUE: Two views of the left hip. Pelvis 1 view FINDINGS: Left hip: No acute fracture or dislocation. Mild arthritis. No suspicious bony lesions. Pelvis: Right hip joint space is preserved. SI joints and symphysis pubis are intact. No acute pelvic fracture seen. No suspicious soft tissue calcifications. XR/XR hip LT w PEL1V IMPRESSION: Mild left hip arthritis. No acute osseous findings. Electronically signed by: Santhosh Theodore MD 10/12/2025 04:59 PM EST
--- NOTE | ~2025-10-12 | XR_ITS ---
EXAMINATION: XR SHOULDER, RIGHT CLINICAL INFORMATION: M25.511 - Pain in right shoulder COMPARISON: None available. TECHNIQUE: AP external rotation, Grashey, scapular Y, and axillary views of the right shoulder. FINDINGS: Moderate acromioclavicular arthritis. Mild-moderate glenohumeral arthritis. No acute fracture or dislocation. No suspicious bony lesion. Small calcification superior to the greater tuberosity, could reflect bony spurring versus calcific tendinitis. XR/XR shoulder RT min 2V IMPRESSION: No acute findings. Arthritis as above. Small calcifications. Greater tuberosity could reflect bony spurring versus calcific tendinitis. Electronically signed by: Santhosh Theodore MD 10/12/2025 04:18 PM KRISTIN BARRETT
== END 2025-10-12 14:58 | disposition home or self-care (01) ==
LOC: HO.XRAY 14:57
PROVIDERS: PCP Student in an Organized Health Care Education/Training Program; Visit Provider Nurse Practitioner Family
DX: M19.011 Primary osteoarthritis, right shoulder (principal); M16.12 Unilateral primary osteoarthritis, left hip; G89.29 Other chronic pain; M51.369 Other intervertebral disc degeneration, lumbar region without mention of lumbar back pain or lower extremity pain; M47.817 Spondylosis without myelopathy or radiculopathy, lumbosacral region; G57.12 Meralgia paresthetica, left lower limb
CPT/HCPCS: 72110; 73030; 73502

== ENCOUNTER 2025-10-12 14:57 | Outpatient (AMB) | payer OTHER, SELFPAY ==
--- OUTSIDE RECORDS SUMMARY | 2012-06-20 06:45 | XMS_ITS | Continuity of Care Document ---
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 Name Role Phone Vinod Ley MD Unavailable Unavailable Procedures Procedure Date Office/outpatient visit,[facility] 2011 Advance Directives Directive Yes / No Effective Date File Name No Information Encounters Encounter Description Practice Location Reason(s) For Visit Diagnoses Date Provider Providers Copied on Encounter Office/outpat ient visit,[facility], [address], [place], [place], [id number], [place] tel:[phone] [facility] stress (chief complaint) Stress at workCardiac arrhythmiaHeart failure [address], [address], [address], [place]. tel:[phone] Referring Provider: Vinod Ley [address], [address]. tel:[phone] Family History Family Member Type Diagnosis Age At Onset No Information Payers Payer name Insurance type Covered democrat ID Authoryeseniaa jo ann(s) Melfa Insurance [facility] [id number] Social History Type Description Quantity Date Captured Comments Sex Male Smoking Status No Information Chief Complaint And Reason For Visit From encounter dated '06/20/2012 11:45'. stress (chief complaint) Reason For Referral Reason For Referral No Information History Of Present Illness Encounter Date Complaint History Of Prese nt Illness No Information Functional Status Date Functional Assessmen t No Information Instructions Date Instruction Additional Infor mation No Information Assessments Type Assessment Date No Information Patient Care Teams Name Effective Dates (start - stop) Status Members No Information
--- OUTSIDE RECORDS SUMMARY | 2012-10-07 09:45 | XMS_ITS | Continuity of Care Document ---
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 Phone Unavailable Unavailable Unavailable Allergies, Adverse Reactions, Alerts Substance Reaction Status Criticality No Known allergies Medications Medication Instructions Dosage Effective Dates (start - stop) Status Comments Qvar 40 mcg/Actuation Aerosol Inhaler inhale 2 puff by inhalation route 2 times every day - Active 3 month supply albuterol sulfate HFA 90 mcg/Actuation Aerosol Inhaler inhale 2 puff by inhalation route every 4 - 6 hours as needed - Active aspirin 81 mg Tab take 1 tablet (81MG) by oral route every day 81 MG - Active hydrochlorothiazide 25 mg Tab take 1 tablet (25MG) by oral route every day 25 MG - Active Coreg CR 10 mg 24 hr Cap take 1 capsule (10MG) by oral route every day 10 MG - Active finasteride 5 mg Tab take 1 tablet (5MG) by oral route every day 5 MG - Active Prescribed by prior [employer] lead doxazosin 4 mg Tab take 1 tablet (4MG) by oral route every day 4 MG - Active Procedures Procedure Date METABOLIC PANEL TOTAL CA LIPID PANEL ALT SGPT ALANINE AMINO AST SGOT TRANSFERASE CBC COMPLETE W/AUTO DIFF WBC TSH ASSAY THYROID STIM HORMONE 12 ASPIRIN 81MG TAB HYDROCHLOROTHIAZIDE 25MG TAB ALBUTEROL MDI Dispensing Fee OFFICE/OUTPATIENT VISIT, NEW FLU VACCINE, 3 YRS & >, IM Advance Directives Directive Yes / No Effective Date File Name No Information Encounters Encounter Description Practice Location Reason(s) For Visit Diagnoses Date Provider Providers Copied on Encounter [facility], [address], [place], [id number], tel:[phone] MEDICAL WC Right Heart FailureHypertensi on, Unspecified 2 No Information [facility], [address], [place], [id number], [place] tel:[phone] MEDICAL WC No Information 2 Ancillary Provider. [address] [place], [address], [place]. tel:[phone] [facility], [address], [place], [id number], [place] tel:[phone] MEDICAL WC No Information 2 No Information OFFICE/OUTPA TIENT VISIT, [facility], [address], [place], [id number], [place] tel:[phone] MEDICAL WC asthma (chief complaint) chf (chief complaint) hypertensi on (chief complaint) Hypertension, UnspecifiedRight Heart FailureInfluenza VaccineAsthma 2 No Information Family History Family Member Type Diagnosis Age At Onset Sister Problem (finding) Alive and well Father Problem (finding) Family history unknown (Cause Of ) Brother Problem (finding) Alive and well Father Problem (finding) Brother Problem (finding) Brother Problem (finding) Family history unknown (Cause Of ) Brother Problem (finding) unknown (Cause Of ) Mother Problem (finding) diabetes melli tus in first degree relative Sister Problem (finding) Alive and well Immunizations Vaccine Date Status Comments Flu (split) (3 yrs or older) administered Source: New Immunization Record Payers Payer name Insurance type Covered alliance party ID Authoriza tion(s) No Information Social History Type Description Quantity Date Captured Comments Alcohol Use Details Unknown Caffeine Use Details Unknown Tobacco Use Status No Information Smoking Status No Information Sex Male Chief Complaint And Reason For Visit No Information Reason For Referral Reason For Referral No Information Plan Of Treatment Date Type Action Status Referral Ordered: Referral: Cardiology. Consult. ordered Future Order: Lab Order iFOBT ([id number]), Ordered on: Ordered History Of Present Illness Encounter Date Complaint History Of Prese nt Illness No Information Functional Status Date Functional Assessmen t No Information Instructions Date Instruction Additional Infor mation No Information Assessments Type Assessment Date No Information Patient Care Teams Name Effective Dates (start - stop) Status Members No Information
--- NOTE | 2025-10-12 14:59 | A.OFFVIS_ITS ---
Vital Signs 3 10/12/25 15:05 Height 6 ft 4 in Weight 282 lb 2 oz BMI 34.3 BP 145/82 H Blood Pressure Location Rt brachial Position Sitting Respiration 18 Pulse 82 Pulse Source Pulse Oximeter Intake Visit Reasons: Low back pain, unspecified Intake Note: Pain today 210 Chief [place] Required: No Accompanied by: Self / Same As Patient Allergies No Known Allergies Allergy (Verified 10/12/25 15:02) HPI Comments Details: The patient is a 65-year-old male presenting with chronic low back pain. He has been experiencing low back pain for the past 12 years, which has been attributed to multilevel thoracolumbar degenerative facet arthritis and degenerative disc disease. An MRI conducted in 2012 revealed a central and left paracentral posterior disc bulge at the L4-L5 level. A subsequent MRI in 2022 indicated a small central dorsal annular tear at L4-L5, with no signs of central canal stenosis and patent bilateral neural foramina. This MRI also noted a small Schmorl's node at L4, and a small central annular bulge at L5-S1 without stenosis. The levels at L2-L3 and L3-L4 were reported as unremarkable. The patient describes the pain as stabbing and aching, localized to the lower back, with radiation to the left anterior thigh. He also reports associated numbness and pain in the left lateral and anterior thigh which does not extend below the knee. He denies any history of trauma, injury, or falls. His symptoms are exacerbated by exertion, walking, prolonged standing, bending, and rising from a seated position. Although his current pain level is 2/10, there have been episodes so severe that he required wheelchair use. Management of his pain has included cortisone injections every 6 to 12 months, with the most recent injection conducted 9 months prior in [place]. His current regimen includes heat, ibuprofen, and capsaicin, and he previously utilized cyclobenzaprine. He underwent physical therapy over 10 years ago in [place]. There is no history of spine or joint surgery. Additionally, the patient reports chronic right shoulder pain and left-sided hip pain. His medical history includes type 2 diabetes managed with Ozempic, with a recent A1C of 6.3, and depression treated with fluoxetine. The patient also experiences a hand tremor that affects writing, with a pending neurology referral. His cardiac history is significant for chronic heart failure, two cardiac catheterizations, cardiomyopathy, and trigeminy, which reportedly improved with CPAP therapy for sleep apnea. He has a history of abdominal hernia repairs. The patient works a sedentary job and maintains a lifestyle involving daily walks in the [place] with his family, though noting that his cardiomyopathy limits him from engaging in strenuous exercises. Pain Description - Onset: Chronic, for the past 12 years. - Location and Radiation: Pain is localized to the lower back and radiates to the left lateral and anterior thigh. - Associated Symptoms: Numbness and pain in the left lateral and anterior thigh, stabbing and aching sensation, soreness, heaviness, and weakness. - Quality: Described as stabbing and aching. - Severity: Current pain is rated at 2/10; past episodes have been severe enough to require wheelchair assistance. - Exacerbating Factors: Walking, exertion, movement, bending forward, and standing up. - Relieving Factors: Heat application, ibuprofen, capsaicin, and past steroid back injections. - Other Pain: Reports of chronic right shoulder pain and left hip pain. Pain Management - Affect: Managed history of depression with fluoxetine. - Analgesia: Current pain rated at 2/10; managed with heat, ibuprofen, capsaicin; steroid injections historically administered every 6-9 months have improved mobility. - Adverse Effects: No adverse reactions to medications noted during the discussion. - Activities of Daily Living: Severe pain impacts mobility, necessitates wheelchair or walker, and impairs daily activities during flare-ups. - Aberrant Drug-Related Behaviors: None discussed. Oswestry Low Back Pain Disability Score=19 [facility] Medical History Left inguinal hernia Class 2 obesity Tremor Low vitamin D level Peanut allergy Elevated liver enzymes Hypertriglyceridemia Depression Hyperlipidemia Hypogonadism male Diabetes type 2 Cardiomyopathy Mild intermittent asthma Hives Allergic reaction Chronic lower back pain Low testosterone Anxiety and depression History of colon polyps Congestive heart failure Idiopathic cardiomyopathy Surgical History History of appendectomy History of cardiac catheterization Family History Mother No problems noted. Father No problems noted. Social History Housing: Apartment Alcohol intake: never Patient Tobacco Use Status: Former Tobacco user e-Cigarette/Vaping Use: Never Used service: No Current occupational status: employed Cognitive needs: No Hearing needs: Yes (occasional wheelchair use) Vision needs: Yes (glasses) Review of Systems Narrative - Musculoskeletal: Reports chronic low back pain radiating to the left lateral and anterior thigh, chronic right shoulder pain, and left hip pain. - Neurological: Reports numbness and pain in the left anterior thigh and a hand tremor. - Psychiatric: Reports a history of depression. - Cardiovascular: Reports a history of cardiomyopathy and trigeminy. - Respiratory: Reports a history of sleep apnea treated with CPAP. - Endocrine: Reports type 2 diabetes with A1C 6.3. - Gastrointestinal: Denies groin pain. Const All systems reviewed & are unremarkable except as noted in HPI and below Physical Exam Vital Signs: Last Vital Signs Pulse 82 10/12/25 15:05 Resp 18 10/12/25 15:05 BP 145/82 H 10/12/25 15:05 BMI result Body Mass Index 34.3 General: Appears afebrile. Alert and oriented. Mood and affect appropriate. Follows and participates in conversation appropriately. Respiratory effort is unlabored. No cough. Able to transition from sit to stand unassisted. Ambulates with bilaterally normal heel strike and toe off. General: Yes no CVA tenderness Back/Spine/Pelvis Other: Normal gait, stable, although he held on for support. Rises from a sitting position with some pain. Lumbar range of motion is limited with forward flexion but is non-painful. Extension and axial rotations are painful. There is no tenderness to palpation over the midline cervical, thoracic or lumbar spine regions. Positive facet loading bilaterally. Sensation is decreased over the left anterior thigh. Right thigh and distal sensation is intact and symmetric. Strength is 5/5 bilaterally. Left straight leg raise is limited by left posterior thigh stretch pain. Negative SLR on the right. Left hip external rotation and abduction elicits pain on the side of the hip. Right hip exam is negative for groin pain. Back: no CVA tenderness Cervical Spine: cervical ROM normal, cervical muscular tenderness and No Cervical spine tenderness Thoracic/Lumbar Spine: thoracic and lumbar spine normal to inspection, No Thoracic/lumbar spine scar(s), Lasegue's sign negative, straight leg raise negative bilaterally, pain with thoraco-lumbar ROM, paraspinal muscle tenderness on the left greater than right, thoraco-lumbar ROM limited, No thoracic spinal tenderness and No lumbar spinal tenderness Sacroiliac joints: bilaterally nontender Extrem Right upper extremity: shoulder/upper arm (Limited ROM due to pain with internal/external rotations, painful arc ) Details: normal to inspection, tenderness Location: of the A-C joint and over the subacromial bursa and crepitus; no swelling, no ecchymosis, no deformity and no unusual warmth Results Reviewed Results Reviewed: X-ray lumbar spine 10/12/25 CLINICAL INFORMATION: Back pain COMPARISON: None TECHNIQUE: 5 views FINDINGS: Mild L2-3, L3-4, L4-5 retrolisthesis. Vertebral body alignment is otherwise maintained. Vertebral body heights are maintained. No evidence of acute fracture. No suspicious bony lesion. Mild disc degeneration in the visualized lower thoracic spine. Mild T12-L1 disc degeneration. Mild endplate spurring at a few levels in the lumbar spine. Facet degeneration in the lower lumbar spine. SI joints are symmetric. Small round calcification in the right upper quadrant, nonspecific. IMPRESSION: No acute findings. Mild thoracolumbar spondylosis as above. XR HIP, LEFT 10/12/25 CLINICAL INFORMATION: M25.552 - Pain in left hip COMPARISON: None available. TECHNIQUE: Two views of the left hip. Pelvis 1 view FINDINGS: Left hip: No acute fracture or dislocation. Mild arthritis. No suspicious bony lesions. Pelvis: Right hip joint space is preserved. SI joints and symphysis pubis are intact. No acute pelvic fracture seen. No suspicious soft tissue calcifications. IMPRESSION: Mild left hip arthritis. No acute osseous findings. XR SHOULDER, RIGHT 10/12/25 CLINICAL INFORMATION: M25.511 - Pain in right shoulder COMPARISON: None available. TECHNIQUE: AP external rotation, Grashey, scapular Y, and axillary views of the right shoulder. FINDINGS: Moderate acromioclavicular arthritis. Mild-moderate glenohumeral arthritis. No acute fracture or dislocation. No suspicious bony lesion. Small calcification superior to the greater tuberosity, could reflect bony spurring versus calcific tendinitis. IMPRESSION: No acute findings. Arthritis as above. Small calcifications. Greater tuberosity could reflect bony spurring versus calcific tendinitis. Assessment & Plan Assessment & Plan (1) Chronic right shoulder pain: Code(s): M25.511 - Pain in right shoulder; G89.29 - Other chronic pain Category: Medical (2) Chronic lower back pain: Code(s): M54.50 - Low back pain, unspecified; G89.29 - Other chronic pain Category: Medical (3) Lumbar degenerative disc disease: Code(s): M51.369 - Other intervertebral disc degeneration, lumbar region without mention of lumbar back pain or lower extremity pain Category: Medical (4) Lumbosacral spondylosis: Code(s): M47.817 - Spondylosis without myelopathy or radiculopathy, lumbosacral region Category: Medical (5) Lumbar radiculopathy: Code(s): M54.16 - Radiculopathy, lumbar region Category: Medical (6) Left hip pain: Code(s): M25.552 - Pain in left hip Category: Medical (7) Meralgia paresthetica of left side: Code(s): G57.12 - Meralgia paresthetica, left lower limb Category: Medical (8) Osteoarthritis of right shoulder: Code(s): M19.011 - Primary osteoarthritis, right shoulder Category: Medical (9) Osteoarthritis of left hip: Code(s): M16.12 - Unilateral primary osteoarthritis, left hip Category: Medical Plan For the evaluation of the patient's musculoskeletal complaints, orders were placed for X-rays of the lumbar spine, hip and right shoulder. These xrays were completed after today's visit as noted above. A referral will be placed for physical therapy as tolerated by him given his cardiac history to address his chronic low back pain, right shoulder pain, and left hip pain at a facility near his home per patient's request. The patient was counseled on various interventional pain management options if conservative treatment fails. These options include diagnostic lumbar medial branch blocks, which could be followed by either radiofrequency ablation or peripheral nerve stimulation for longer-term pain relief and therapeutic shoulder and hip injections. The importance of weight optimization, avoiding prolonged periods of sitting and taking frequent breaks to stand and move was also emphasized to improve chronic degenerative disc disease. Additionally, I addressed the merit of neurodiagnostic studies given the non- congruence of MRI findings with symptom presentation, and planned to follow up on this to rule out meralgia paresthetica of left side. We reviewed the next steps, including further testing and follow-up schedule for evaluating treatment efficacy. The patient understands when to return for further consultation or if symptoms worsen unexpectedly. All questions and concerns have been answered and patient agreed with the treatment plan. Follow up for EMG/NVC results and sooner as needed. Patient was informed and verbally consented to the use of an ambient scribe for clinic note documentation during this visit. Orders: Orders 2 NE nerve conduction velocity Today G57.12 - Meralgia paresthetica, left lower limb, M54.16 - Radiculopathy, lumbar region XR shoulder RT min 2V Today G89.29 - Other chronic pain, M25.511 - Pain in right shoulder XR lumbar spine 4V min Today G89.29 - Other chronic pain, M47.817 - Spondylosis without myelopathy or radiculopathy, lumbosacral region, M51.369 - Other intervertebral disc degeneration, lumbar region without mention of lumbar back pain or lower extremity pain, M54.16 - Radiculopathy, lumbar region, M54.50 - Low back pain, unspecified PT Evaluation and Treatment Today G89.29 - Other chronic pain, I42.9 - Cardiomyopathy, unspecified, M25.511 - Pain in right shoulder, M47.817 - Spondylosis without myelopathy or radiculopathy, lumbosacral region, M51.369 - Other intervertebral disc degeneration, lumbar region without mention of lumbar back pain or lower extremity pain, M54.16 - Radiculopathy, lumbar region, M54.50 - Low back pain, unspecified XR hip LT w PEL1V Today M25.552 - Pain in left hip NE electromyogram (EMG) Today G57.12 - Meralgia paresthetica, left lower limb, M54.16 - Radiculopathy, lumbar region Coding Level of Care Code New Pt Level 4 (69895) Diagnoses Chronic right shoulder pain M25.511; G89.29 Chronic lower back pain M54.50; G89.29 Lumbar degenerative disc disease M51.369 Lumbosacral spondylosis M47.817 Lumbar radiculopathy M54.16 Left hip pain M25.552 Meralgia paresthetica of left side G57.12 Osteoarthritis of right shoulder M19.011 Osteoarthritis of left hip M16.12
[2025-10-12 15:05] VITALS: BP 145/82; PULSE 82; RESP 18; BMI 34.3
--- OUTSIDE RECORDS SUMMARY | 2025-10-12 20:00 | XMS_ITS | Encounter Summary ---
Author Organization [facility] Health Address [address] [place] [address] Care Team Providers Care Director Of Undergraduate Admissions Name Role Phone Unavailable Primary Care Provider Unavailabl e Prior Encounters Date Type Department Care Team Description 11/20/2019 Converted 13x Documents [facility] [address] [place] [address] <No scans attached> 11/20/2019 Converted CPS Chart Documents [facility] [address] [place] [address] <No scans attached> Plan of Treatment Not on file Procedures Procedure Name Priority Date/Time Associated Diagnosis Comments MISSED APPOINTMENT Routine 09/12/2014 12 :00 AM PST MISSED APPOINTMENT Routine 09/12/2014 12 :00 AM PST 20 MO AMALGAM 2 SURFACE Routine 03/07/20 14 12:00 AM PDT 30 O AMALGAM 1 SURFACE Routine 4 12:00 AM PDT 19 O AMALGAM 1 SURFACE Routine 4 12:00 AM PDT 18 O AMALGAM 1 SURFACE Routine 4 12:00 AM PDT 15 O AMALGAM 1 SURFACE Routine 4 12:00 AM PDT 14 O AMALGAM 1 SURFACE Routine 4 12:00 AM PDT 3 O AMALGAM 1 SURFACE Routine 03/07/2014 12:00 AM PDT COMPREHENSIVE ORAL EVALUATION - NEW OR ESTABLISHED PATIENT Routine 03/07/2014 12:00 AM PDT PANORAMIC RADIOGRAPHIC IMAGE Routine 03/07/2014 12:00 AM PDT INTRAORAL - COMPREHENSIVE SERIES OF RADIOGRAPHIC IMAGES Routine 03/07/2014 12:00 AM PDT INTRAORAL PHOTO Routine 03/07/2014 12:00 AM PDT INTRAORAL PHOTO Routine 03/07/2014 12:00 AM PDT INTRAORAL PHOTO Routine 03/07/2014 12:00 AM PDT INTRAORAL PHOTO Routine 03/07/2014 12:00 AM PDT Visit Diagnoses Not on file
--- OUTSIDE RECORDS SUMMARY | 2025-10-12 20:00 | XMS_ITS | Clinical Summary ---
Author Organization [facility] Health Address [address] [place] [address] Care Team Providers Care Degreaser Name Role Phone Unavailable Primary Care Provider Unavailabl e Social History Tobacco Use Types Packs/Day Years Used Date Smoking Tobacco: Never Assessed Sex and Gender Information Value Date Recorded Sex Assigned at Not on file Legal Sex Male 1:32 AM PST Gender Identity Not on file Sexual Orientation Not on file Plan of Treatment Not on file
== END 2025-10-12 15:53 | disposition home or self-care (01) ==
LOC: HO.PMC 14:58
PROVIDERS: PCP Student in an Organized Health Care Education/Training Program; Visit Provider Nurse Practitioner Family
DX: M25.511 Pain in right shoulder (principal); G89.29 Other chronic pain; M54.50 Low back pain, unspecified; M51.369 Other intervertebral disc degeneration, lumbar region without mention of lumbar back pain or lower extremity pain; M47.817 Spondylosis without myelopathy or radiculopathy, lumbosacral region; M54.16 Radiculopathy, lumbar region; M25.552 Pain in left hip; G57.12 Meralgia paresthetica, left lower limb; M19.011 Primary osteoarthritis, right shoulder; M16.12 Unilateral primary osteoarthritis, left hip
CPT/HCPCS: 99204

== ENCOUNTER → 2025-10-12 15:49 | Outpatient (BNV) | payer OTHER, SELFPAY | PROVIDERS: PCP Student in an Organized Health Care Education/Training Program; Visit Provider Radiology Diagnostic Ultrasound | DX: M47.815 Spondylosis without myelopathy or radiculopathy, thoracolumbar region (principal); M16.12 Unilateral primary osteoarthritis, left hip; M19.011 Primary osteoarthritis, right shoulder; M25.811 Other specified joint disorders, right shoulder | CPT/HCPCS: 72110; 73030; 73502 ==